=== PATIENT | female | born 2000 | race American Indian/Alaskan Native ===

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

== ENCOUNTER 2021-07-23 15:17 | Outpatient (CLI) | payer BC, MEDICAID ==
[2021-07-23 18:16] VITALS: BP 97/55
[2021-07-23 18:47] LABS: Bilirubin,Urine NEG (Negative); Blood,Urine SM (Negative); Color,Urine Yellow (Yellow); Mucus,Urine 3+ /HPF; Urobilinogen,Urine < 2.0 mg/dL (<2.0)
[2021-07-23] MEDS ORDERED: LACTATED RINGERS 1,000 ML IV ONE ×2 (19:20→20:05)
[2021-07-23] MEDS ORDERED: LIDOCAINE-MPF (1%) 10 MG/1 ML VIAL 5 ML INFILTRATI ONE (20:33)
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
== END 2021-07-23 22:00 | disposition home or self-care (01) ==
LOC: TRG 15:17 → APU 15:17 → TRG 22:00
PROVIDERS: ATTEND Obstetrics & Gynecology
DX: O26.892 Other specified pregnancy related conditions, second trimester (principal); R10.30 Lower abdominal pain, unspecified; M54.9 Dorsalgia, unspecified; V49.88XA Car occupant (driver) (passenger) injured in other specified transport accidents, initial encounter; Z3A.23 23 weeks gestation of pregnancy
CPT/HCPCS: 59025; 76815; 81001; 96360; 96361; 96372; J0696; J7120